=== PATIENT | male | born 1940 | race Caucasian/White ===

== ENCOUNTER 2018-02-22 07:03 | Day surgery (SDC) | payer MEDICARE, BC ==
[2018-02-22] MEDS ORDERED: XYLOCAINE 1% HCL 20 ML MDV ONE (07:15)
[2018-02-22] MEDS ORDERED: BACIGUENT 30 GM ONE (07:15)
[2018-02-22 11:39] VITALS: BP 141/73; PULSE 62; O2SAT 97
--- NOTE | 2018-02-22 15:42 | OP ---
DATE: 02/22/20181014 PREOPERATIVE DIAGNOSIS: Right posterior auricular cyst. POSTOPERATIVE DIAGNOSES: Right posterior auricular cyst. PROCEDURES: Excision right posterior auricular cyst. SURGEON: Gunnar Lizarraga M.D. ANESTHESIA: Local. SPECIMEN: Right posterior auricular cyst. ESTIMATED BLOOD LOSS: Minimal. COMPLICATIONS: None. FINDINGS: A 6 mm right posterior auricular cyst. 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 He presents for surgical excision after discussion of risks and benefits of removal and the patient and wishes to proceed. DESCRIPTION OF PROCEDURE: The patient is brought to the OR, place supine on the operating table with the right ear prepped and draped in sterile fashion. The cyst was just behind the right ear. It was infiltrated with 1% lidocaine plain. Elliptical incision was made along the skin folds approximately 1 cm with a scalpel this was then excised fully. The small cyst which measured about 6 mm with scalpel. Hemostasis was obtained with electrocautery. The skin was closed with 5-0 Prolene suture interrupted x2. Bacitracin was placed over the wound. The patient was recovered and taken to PACU in stable condition.
== END 2018-02-22 11:30 | disposition home or self-care (01) ==
LOC: SDC 07:03
PROVIDERS: ATTEND Surgery
DX: Q18.1 Preauricular sinus and cyst (principal)
CPT/HCPCS: A9270-GY